=== PATIENT | male | born 1950 | race Hispanic/Latino ===

== ENCOUNTER 2021-07-19 11:17 | Emergency (ER) | payer OTHER, MEDICARE ==
[~2021-07-19] VITALS: Ht 167.6 cm; Wt 77.1 kg
[2021-07-19 12:22] LABS: BASOPHILS % (AUTO) 0.4 % (0.0-5.0); EOSINOPHILS % (AUTO) 0.5 % (0.0-8.0); HEMATOCRIT 39.3 % (42-54); LYMPHOCYTES % (AUTO) 12.7 % (21.0-51.0); MEAN CORPUSCULAR HEMOGLOBIN 30.8 pg (27.0-33.0); MEAN CORPUSCULAR HGB CONC 35.1 g/dL (32.0-36.0); MEAN CORPUSCULAR VOLUME 87.7 fL (79-99); MONOCYTES % (AUTO) 4.9 % (3.0-13.0); PLATELET COUNT (AUTO) 198 K/uL (130-400); RED BLOOD CELL COUNT(AUTO) 4.48 MIL/uL (4.50-6.20); RED CELL DISTRIBUTION WIDTH 12.3 % (11.0-15.5); WHITE BLOOD COUNT (AUTO) 11.1 K/uL (4.8-10.8)
[2021-07-19 12:22] LABS: APPEARANCE,URINE Clear (CLEAR); BILIRUBIN,URINE Negative (NEGATIVE); COLOR,URINE Yellow (YELLOW); GLUCOSE, URINE (UA) Negative (NEGATIVE); KETONES,URINE Negative (NEGATIVE); LEUKOCYTE ESTERASE ,URINE Negative (NEGATIVE); NITRATE,URINE Negative (NEGATIVE); OCCULT BLOOD,URINE Nonhemolyzed Trace (NEGATIVE); PH,URINE 5.5 (5.0-8.0); PROTEIN,URINE Negative (NEGATIVE); UROBILINOGEN,URINE 0.2 mg/dL (0.2-1.0)
[2021-07-19 12:32] LABS: POTASSIUM 3.7 mmol/L (3.5-5.1)
[2021-07-19 12:36] LABS: ALBUMIN 4.1 g/dL (3.5-5.0); BILIRUBIN,TOTAL 0.5 mg/dL (0.2-1.0); TOTAL PROTEIN, SERUM 7.3 g/dL (6.0-8.3)
[2021-07-19 12:53] LABS: BACTERIA,URINE Rare /HPF (None Seen); RBC,URINE 0-1 /HPF (0-1); SQUAMOUS EPITHELIAL CELL,UR Rare /HPF (0-2); WBC,URINE 0-1 /HPF (0-1)
[2021-07-19 13:40] VITALS: BP 119/61
== END 2021-07-19 13:40 | disposition home or self-care (01) ==
LOC: EDH 11:17 → EDBD 11:17 → EDH 13:40
DX: N40.1 Benign prostatic hyperplasia with lower urinary tract symptoms (principal); R33.8 Other retention of urine; E11.9 Type 2 diabetes mellitus without complications
CPT/HCPCS: 36415; 51702; 80053; 81001; 85025

== ENCOUNTER 2021-07-30 10:20 | Inpatient (IN) | payer OTHER, MEDICARE ==
[~2021-07-30] VITALS: Ht 167.6 cm; Wt 86.2 kg
[2021-07-30] VITALS (12 sets, daily range): BP systolic 93–134; BP diastolic 59–75
[2021-07-30] MEDS ORDERED: 0.9%NACL 1000ML 1,000 ML IV ONE ×2 (10:51→11:59)
[2021-07-30 10:53] LABS: BASOPHILS % (AUTO) 0.1 % (0.0-5.0); EOSINOPHILS % (AUTO) 0.1 % (0.0-8.0); HEMATOCRIT 35.1 % (42-54); LYMPHOCYTES % (AUTO) 2.5 % (21.0-51.0); MEAN CORPUSCULAR HEMOGLOBIN 30.9 pg (27.0-33.0); MEAN CORPUSCULAR VOLUME 88.2 fL (79-99); MONOCYTES % (AUTO) 5.5 % (3.0-13.0); NEUTROPHILS % (AUTO) 90.5 % (40.0-77.0); PLATELET COUNT (AUTO) 186 K/uL (130-400); RED BLOOD CELL COUNT(AUTO) 3.98 MIL/uL (4.50-6.20); RED CELL DISTRIBUTION WIDTH 12.5 % (11.0-15.5)
[2021-07-30 11:08] LABS: INR 1.13 (0.85-1.15); PROTHROMBIN TIME 12.2 SEC (9.6-11.6)
[2021-07-30] MEDS ORDERED: ZOSYN 3.375GM+NS 50ML 50 ML ONE (11:15)
[2021-07-30] MEDS ORDERED: ACETAMINOPHEN 325 MG TAB ONE (11:22)
[2021-07-30 11:28] LABS: CREATININE 1.3 mg/dL (0.5-1.5); POTASSIUM 3.8 mmol/L (3.5-5.1)
[2021-07-30 11:37] LABS: ALBUMIN 2.9 g/dL (3.5-5.0); BILIRUBIN,TOTAL 0.7 mg/dL (0.2-1.0); TOTAL PROTEIN, SERUM 6.9 g/dL (6.0-8.3)
[2021-07-30] MEDS ORDERED: 0.9% NACL 500ML IV.SOLN 500 ML IV ONE (12:52)
[2021-07-30] MEDS ORDERED: ONDANSETRON 4MG INJ IV PRN (13:00)
[2021-07-30] MEDS ORDERED: ACETAMINOPHEN 325 MG TAB PO PRN (13:00)
[2021-07-30] MEDS ORDERED: ZOLPIDEM TARTRATE 5 MG TAB PO PRN (13:00)
[2021-07-30] MEDS ORDERED: ZOSYN 3.375GM+NS 50ML 50 ML IV SCH (13:00)
[2021-07-30] MEDS ORDERED: NOREPINEPHRIN 4MG/NS 250ML 250 ML IV ONE (13:24)
[2021-07-30] MEDS ORDERED: NOREPINEPHRIN 4MG/NS 250ML 250 ML IV SCH (13:30)
[2021-07-30] MEDS: 0.9%NACL 1000ML 1,000 ML IV SCH ×2 (14:11→22:09)
[2021-07-30 14:19] LABS: APPEARANCE,URINE Cloudy (CLEAR); BILIRUBIN,URINE Negative (NEGATIVE); COLOR,URINE Yellow (YELLOW); GLUCOSE, URINE (UA) Negative (NEGATIVE); KETONES,URINE Negative (NEGATIVE); LEUKOCYTE ESTERASE ,URINE Large (NEGATIVE); NITRATE,URINE Positive (NEGATIVE); OCCULT BLOOD,URINE Moderate (NEGATIVE); PROTEIN,URINE Trace mg/dL (NEGATIVE); UROBILINOGEN,URINE 0.2 mg/dL (0.2-1.0)
[2021-07-30] MEDS ORDERED: SIMV-43 PO (14:30)
[2021-07-30] MEDS ORDERED: LISI20TA24 PO (14:30)
[2021-07-30] MEDS ORDERED: VANCOMYCIN 1.25GM/NS 250ML IVPB SCH ×2 (14:30)
[2021-07-30] MEDS ORDERED: DUTA0.5C37 PO (14:30)
[2021-07-30] MEDS ORDERED: PARO-37 PO (14:30)
[2021-07-30] MEDS ORDERED: TAMS-1 PO (14:30)
[2021-07-30] MEDS ORDERED: PRAZ2CAP2 PO (14:30)
[2021-07-30] MEDS ORDERED: VANCOMYCIN PROTOCOL PER PHARMACY IV SCH (14:30)
[2021-07-30] MEDS ORDERED: ACET500P24 PO (14:30)
[2021-07-30] MEDS ORDERED: HYDR12.54 PO (14:30)
[2021-07-30] MEDS ORDERED: SITA50TA PO (14:30)
[2021-07-30] MEDS ORDERED: METF-445 PO (14:30)
[2021-07-30 14:34] LABS: BACTERIA,URINE Moderate /HPF (None Seen)
[2021-07-30 14:36] LABS: SQUAMOUS EPITHELIAL CELL,UR Rare /HPF (0-2)
[2021-07-30] MEDS ORDERED: DEXTROSE 50%-WATER 50 ML DISP.SYRIN IV PRN (15:00)
[2021-07-30] MEDS ORDERED: GLUCAGON 1MG KIT 1 MG ML IM PRN (15:00)
[2021-07-30] MEDS ORDERED: INSULIN HUMULIN R 100 UNIT/ML 3ML SQ SCH (16:30)
[2021-07-30] MEDS: INSULIN HUMULIN R 100 UNIT/ML 3ML SQ SCH ×2 (16:55→20:43)
[2021-07-30] MEDS ORDERED: 0.9%NACL 50ML 50 ML IV ONE (20:40)
[2021-07-30] MEDS: ZOSYN 3.375GM+NS 50ML 50 ML IV SCH (20:41)
[2021-07-30] MEDS: FAMOTIDINE 20MG VIAL IV SCH (20:41)
[2021-07-31] VITALS (29 sets, daily range): BP systolic 89–135; BP diastolic 53–82
[2021-07-31 03:45] LABS: MEAN CORPUSCULAR HEMOGLOBIN 31.6 pg (27.0-33.0); MEAN CORPUSCULAR HGB CONC 34.7 g/dL (32.0-36.0); MEAN CORPUSCULAR VOLUME 90.9 fL (79-99); RED BLOOD CELL COUNT(AUTO) 3.74 MIL/uL (4.50-6.20); RED CELL DISTRIBUTION WIDTH 12.9 % (11.0-15.5); WHITE BLOOD COUNT (AUTO) 17.2 K/uL (4.8-10.8)
[2021-07-31 03:56] LABS: HEMOGLOBIN A1C 6.9 % (4.0-6.0)
[2021-07-31 04:14] LABS: ALBUMIN 2.4 g/dL (3.5-5.0); BILIRUBIN,TOTAL 0.5 mg/dL (0.2-1.0); CREATININE 1.2 mg/dL (0.5-1.5); POTASSIUM 3.5 mmol/L (3.5-5.1); TOTAL PROTEIN, SERUM 6.2 g/dL (6.0-8.3)
[2021-07-31] MEDS: ZOSYN 3.375GM+NS 50ML 50 ML IV SCH (04:30)
[2021-07-31] MEDS: ACETAMINOPHEN 325 MG TAB PO PRN ×2 (05:30→16:03)
[2021-07-31] MEDS: INSULIN HUMULIN R 100 UNIT/ML 3ML SQ SCH ×4 (06:32→19:50)
[2021-07-31] MEDS ORDERED: KCL 20 MEQ ERTAB PO PRN (07:30)
[2021-07-31] MEDS ORDERED: POTASSIUM CHLORIDE 10MEQ/100ML 100 ML IV PRN (07:30)
[2021-07-31] MEDS ORDERED: LIDOCAINE HCL-MPF 1% 2ML VIAL IV PRN (07:30)
[2021-07-31] MEDS ORDERED: POTASSIUM CHLORIDE 10% ELIXIR 20 MEQ/15 ML UDCUP PO PRN (07:30)
[2021-07-31] MEDS: 0.9%NACL 1000ML 1,000 ML IV SCH ×3 (08:24→09:33)
[2021-07-31] MEDS ORDERED: MEROPENEM 1 GM VIAL IVP SCH (09:00)
[2021-07-31] MEDS ORDERED: LINEZOLID 600 MG/ISO-OSM 300 ML IV SCH (09:00)
[2021-07-31] MEDS ORDERED: CEFEPIME HCL 2 GM VIAL IVP SCH (09:00)
[2021-07-31] MEDS: FAMOTIDINE 20MG VIAL IV SCH ×2 (09:32→20:15)
[2021-07-31] MEDS: ENOXAPARIN SODIUM 30 MG/0.3 ML SQ SCH (09:33)
[2021-07-31] MEDS: MEROPENEM 1 GM VIAL IVP SCH (16:45)
[2021-07-31] MEDS: HYDROMORPHONE 0.5 MG SYG (0.5MG/0.5ML) IVP PRN (18:10)
[2021-07-31] MEDS: ACETAMINOPHEN WITH CODEINE 1 TAB TAB PO PRN (22:49)
[2021-08-01] VITALS (13 sets, daily range): BP systolic 106–142; BP diastolic 62–86
[2021-08-01] MEDS ORDERED: 0.9%NACL 1000ML 1,000 ML IV ONE (00:02)
[2021-08-01] MEDS: MEROPENEM 1 GM VIAL IVP SCH ×3 (00:09→16:49)
[2021-08-01] MEDS: HYDROMORPHONE 0.5 MG SYG (0.5MG/0.5ML) IVP PRN ×3 (01:25→15:02)
[2021-08-01 03:41] LABS: BASOPHILS % (AUTO) 0.4 % (0.0-5.0); EOSINOPHILS % (AUTO) 0.7 % (0.0-8.0); HEMATOCRIT 31.3 % (42-54); LYMPHOCYTES % (AUTO) 9.9 % (21.0-51.0); MEAN CORPUSCULAR HEMOGLOBIN 31.4 pg (27.0-33.0); MEAN CORPUSCULAR HGB CONC 34.2 g/dL (32.0-36.0); MEAN CORPUSCULAR VOLUME 91.8 fL (79-99); NEUTROPHILS % (AUTO) 81.3 % (40.0-77.0); PLATELET COUNT (AUTO) 189 K/uL (130-400); RED BLOOD CELL COUNT(AUTO) 3.41 MIL/uL (4.50-6.20); RED CELL DISTRIBUTION WIDTH 13.5 % (11.0-15.5); WHITE BLOOD COUNT (AUTO) 19.3 K/uL (4.8-10.8)
[2021-08-01 03:53] LABS: CREATININE 1.1 mg/dL (0.5-1.5)
[2021-08-01] MEDS: ACETAMINOPHEN 325 MG TAB PO PRN ×2 (04:04→18:23)
[2021-08-01] MEDS: INSULIN HUMULIN R 100 UNIT/ML 3ML SQ SCH ×4 (05:44→22:23)
[2021-08-01] MEDS: FAMOTIDINE 20MG VIAL IV SCH ×2 (08:18→22:18)
[2021-08-01] MEDS: ENOXAPARIN SODIUM 30 MG/0.3 ML SQ SCH (08:19)
[2021-08-01] MEDS: ACETAMINOPHEN WITH CODEINE 1 TAB TAB PO PRN (22:16)
[2021-08-02 03:55] VITALS: BP 144/82
[2021-08-02] MEDS: MEROPENEM 1 GM VIAL IVP SCH ×3 (03:57→17:37)
[2021-08-02 04:47] LABS: BASOPHILS % (AUTO) 0.4 % (0.0-5.0); EOSINOPHILS % (AUTO) 1.9 % (0.0-8.0); HEMATOCRIT 34.5 % (42-54); LYMPHOCYTES % (AUTO) 12.6 % (21.0-51.0); MEAN CORPUSCULAR HEMOGLOBIN 30.7 pg (27.0-33.0); MEAN CORPUSCULAR HGB CONC 33.3 g/dL (32.0-36.0); MONOCYTES % (AUTO) 6.7 % (3.0-13.0); NEUTROPHILS % (AUTO) 76.5 % (40.0-77.0); PLATELET COUNT (AUTO) 229 K/uL (130-400); RED BLOOD CELL COUNT(AUTO) 3.75 MIL/uL (4.50-6.20); RED CELL DISTRIBUTION WIDTH 13.7 % (11.0-15.5); WHITE BLOOD COUNT (AUTO) 14.6 K/uL (4.8-10.8)
[2021-08-02 05:18] LABS: POTASSIUM 3.6 mmol/L (3.5-5.1)
[2021-08-02] MEDS: INSULIN HUMULIN R 100 UNIT/ML 3ML SQ SCH ×4 (05:49→21:00)
[2021-08-02 07:30] VITALS: BP 153/81
[2021-08-02] MEDS: ENOXAPARIN SODIUM 30 MG/0.3 ML SQ SCH (09:00)
[2021-08-02] MEDS: FAMOTIDINE 20MG VIAL IV SCH ×2 (10:22→21:43)
[2021-08-02] MEDS: PHENAZOPYRIDINE HCL 200 MG TABLET PO SCH ×2 (10:22→17:37)
[2021-08-02] MEDS: ACETAMINOPHEN WITH CODEINE 1 TAB TAB PO PRN ×2 (10:34→21:53)
[2021-08-02 12:08] VITALS: BP 131/74
[2021-08-02 14:47] LABS: INR 1.05 (0.85-1.15); PROTHROMBIN TIME 11.4 SEC (9.6-11.6)
[2021-08-02 14:49] LABS: PARTIAL THROMBOPLASTIN TIME 29.1 SEC (26.3-35.5)
[2021-08-02 16:30] VITALS: BP 150/81
[2021-08-02 19:48] VITALS: BP 156/87
[2021-08-02] MEDS: METFORMIN HCL 850 MG TABLET PO SCH (21:00)
[2021-08-02] MEDS ORDERED: FINASTERIDE 5 MG TABLET PO SCH (21:00)
[2021-08-02] MEDS ORDERED: SIMVASTATIN 20 MG TABLET PO SCH (21:00)
[2021-08-02 23:36] VITALS: BP 142/78
[2021-08-03] MEDS: MEROPENEM 1 GM VIAL IVP SCH ×2 (03:07→08:58)
[2021-08-03] MEDS: PHENAZOPYRIDINE HCL 200 MG TABLET PO SCH ×2 (03:07→09:00)
[2021-08-03] MEDS: HYDROMORPHONE 0.5 MG SYG (0.5MG/0.5ML) IVP PRN (03:07)
[2021-08-03 03:35] VITALS: BP 135/73
[2021-08-03 04:55] LABS: BASOPHILS % (AUTO) 0.5 % (0.0-5.0); EOSINOPHILS % (AUTO) 2.1 % (0.0-8.0); HEMATOCRIT 36.4 % (42-54); LYMPHOCYTES % (AUTO) 16.6 % (21.0-51.0); MEAN CORPUSCULAR HEMOGLOBIN 30.3 pg (27.0-33.0); MEAN CORPUSCULAR HGB CONC 32.4 g/dL (32.0-36.0); MEAN CORPUSCULAR VOLUME 93.6 fL (79-99); NEUTROPHILS % (AUTO) 70.2 % (40.0-77.0); PLATELET COUNT (AUTO) 235 K/uL (130-400); RED BLOOD CELL COUNT(AUTO) 3.89 MIL/uL (4.50-6.20); RED CELL DISTRIBUTION WIDTH 13.7 % (11.0-15.5); WHITE BLOOD COUNT (AUTO) 12.8 K/uL (4.8-10.8)
[2021-08-03 05:22] LABS: % IRON SATURATION 16.4 % (30-44)
[2021-08-03 05:31] LABS: ALBUMIN 2.5 g/dL (3.5-5.0); POTASSIUM 3.6 mmol/L (3.5-5.1)
[2021-08-03] MEDS: INSULIN HUMULIN R 100 UNIT/ML 3ML SQ SCH ×3 (07:30→15:56)
[2021-08-03 08:02] VITALS: BP 144/82
[2021-08-03] MEDS: FAMOTIDINE 20MG VIAL IV SCH (08:58)
[2021-08-03] MEDS: METFORMIN HCL 850 MG TABLET PO SCH ×2 (09:00→14:05)
[2021-08-03] MEDS ORDERED: LISINOPRIL 20 MG TABLET PO SCH (09:00)
[2021-08-03] MEDS ORDERED: TAMSULOSIN HCL 0.4 MG CAP.ER.24H PO SCH (09:00)
[2021-08-03] MEDS ORDERED: HYDROCHLOROTHIAZIDE 25 MG TABLET PO SCH (09:00)
[2021-08-03] MEDS ORDERED: ACETAMINOPHEN 500 MG TABLET PO SCH (09:00)
[2021-08-03] MEDS ORDERED: PAROXETINE HCL 20 MG TABLET PO SCH (09:00)
[2021-08-03] MEDS ORDERED: NON-FORMULARY MEDICATION 1 EACH (Dutasteride 0.5 MG) PO SCH (09:00)
[2021-08-03] MEDS ORDERED: LINAGLIPTIN 5 MG TABLET PO SCH (09:00)
[2021-08-03] MEDS ORDERED: DOXAZOSIN MESYLATE 2 MG TABLET PO SCH (09:00)
[2021-08-03] MEDS: ENOXAPARIN SODIUM 30 MG/0.3 ML SQ SCH (09:01)
[2021-08-03 10:44] VITALS: BP 142/82
[2021-08-03] MEDS: ACETAMINOPHEN WITH CODEINE 1 TAB TAB PO PRN (13:04)
[2021-08-03 15:31] VITALS: BP 141/77
== END 2021-08-03 18:00 | DRG 871 ==
LOC: EDH 10:20 → EDHIP 12:59 → 2CH 17:50 → 3AH 08-01 09:23
PROVIDERS: ADMIT Hospitalist; ATTEND Hospitalist
DX: A41.9 Sepsis, unspecified organism (principal); R65.21 Severe sepsis with septic shock; E44.0 Moderate protein-calorie malnutrition; E87.1 Hypo-osmolality and hyponatremia; N39.0 Urinary tract infection, site not specified; N41.0 Acute prostatitis; Z16.12 Extended spectrum beta lactamase (ESBL) resistance; Z16.24 Resistance to multiple antibiotics; E11.9 Type 2 diabetes mellitus without complications; E78.00 Pure hypercholesterolemia, unspecified; I10 Essential (primary) hypertension; N32.0 Bladder-neck obstruction; Z20.822 Contact with and (suspected) exposure to COVID-19; N40.1 Benign prostatic hyperplasia with lower urinary tract symptoms; R33.8 Other retention of urine; E66.9 Obesity, unspecified; B96.20 Unspecified Escherichia coli [E. coli] as the cause of diseases classified elsewhere; Z68.30 Body mass index [BMI] 30.0-30.9, adult; Z83.3 Family history of diabetes mellitus
CPT/HCPCS: 36415; 71045; 74176; 80048; 80053; 81001; 82040; 82550; 82607; 82728; 82746; 82948; 83036; 83540; 83550; 83605; 83735; 83880; 84145; 84153; 84484; 85025; 85027; 85045; 85610; 85730; 87040; 87077; 87088; 87186; 87635; 93005; 99291; C9803; G0378; J1170; J1650; J1815; J2020; J2185; J2543; J3370; J3490; J7030; J7040; J7050